=== PATIENT | female | born 1995 | race Two or more races ===

== ENCOUNTER 2020-09-30 23:04 | Emergency (ER) | payer OTHER ==
[2020-10-01 01:21] LABS: APPEARANCE,URINE SLIGHTLY-CLOUDY; BILIRUBIN,URINE NEGATIVE (NEGATIVE); COLOR,URINE YELLOW; GLUCOSE, URINE NEGATIVE (NEGATIVE); KETONES,URINE 80 mg/dL (NEGATIVE); LEUKOCYTE ESTERASE,URINE NEGATIVE (NEGATIVE); NITRITE,URINE NEGATIVE (NEGATIVE); PROTEIN,URINE NEGATIVE (NEGATIVE); URINE SPECIFIC GRAVITY 1.018; UROBILINOGEN,URINE NEGATIVE mg/dL (<2.0)
[2020-10-01] MEDS ORDERED: NORMAL SALINE 1000 ML 1,000 ML IV ONE (02:50)
[2020-10-01] MEDS ORDERED: ONDANSETRON HCL INJ/PF 4 MG/2 ML SDV IV ONE (03:02)
[2020-10-01] MEDS ORDERED: FAMOTIDINE 20 MG TABLET PO ONE (03:02)
[2020-10-01] MEDS ORDERED: SUCRALFATE 1 GM TABLET PO ONE (03:03)
--- NOTE | 2020-10-01 03:08 | ER Document Report ---
ED General - General Chief Complaint: Vomiting Stated Complaint: ABDOMINAL AND ARM PAIN Time Seen by Provider: 10/01/20 02:56 Notes: Patient is a 25-year-old female who comes emergency department for chief complaint of vomiting, generalized weakness, muscle aches, and tingling in her arms. She states she drank 6 shots of jose francisco last night and today she vomited multiple times especially when she tried to eat. Patient states she drinks rarely. She states that she just got over a mild cold where she was taking a lot of ibuprofen as well. She also states that she is currently on the keto diet. She denies fever, flank pain, chest pain, difficulty breathing, hematemesis, abnormal bowel movements. She denies any abdominal surgeries or any daily prescribed medications. Denies . - Related Data Allergies/Adverse Reactions: No Known Allergies Allergy (Verified 10/01/20 00:19) Home Medications: vitamin D Past Medical History - General Information source: Patient - Social History Smoking Status: Never Smoker Chew tobacco use (# tins/day): No Frequency of alcohol use: Social Drug Abuse: None Lives with: Family Family History: Reviewed & Not Pertinent - Medical History Medical History: Negative Surgical Hx: Negative - Immunizations Immunizations up to date: Yes Hx Diphtheria, Pertussis, Tetanus Vaccination: Yes Review of Systems - Review of Systems Constitutional: No symptoms reported EENT: No symptoms reported Cardiovascular: No symptoms reported Respiratory: No symptoms reported Gastrointestinal: See HPI Genitourinary: No symptoms reported Female Genitourinary: No symptoms reported Musculoskeletal: No symptoms reported Skin: No symptoms reported Hematologic/Lymphatic: No symptoms reported Neurological/Psychological: See HPI Physical Exam - Vital signs Vitals: Temp Pulse Resp BP Pulse Ox 97.7 F 120 H 18 131/100 H 99 09/30/20 23:11 09/30/20 23:11 09/30/20 23:11 09/30/20 23:11 09/30/20 23:11 - Notes Notes: GENERAL: Alert, interacts well. No acute distress. HEAD: Normocephalic, atraumatic. EYES: Pupils equal, round, and reactive to light. Extraocular movements intact. ENT: Oral mucosa very dry, tongue midline. Oropharynx unremarkable. Airway patent. NECK: Full range of motion. Supple. Trachea midline. No lymphadenopathy. LUNGS: Clear to auscultation bilaterally, no wheezes, rales, or rhonchi. No respiratory distress. Non-tender chest wall. HEART: Regular rate and rhythm. No murmur ABDOMEN: Mild generalized mid to upper abdominal tenderness without guarding. No rigidity, bowel sounds unremarkable EXTREMITIES: Moves all 4 extremities spontaneously. No edema, normal radial and dorsalis pedis pulses bilaterally. No cyanosis. BACK: no cervical, thoracic, lumbar midline tenderness. No saddle anesthesia, normal distal neurovascular exam. Moves all extremities in full range of motion. NEUROLOGICAL: Alert and oriented x3. Normal speech. Cranial nerves II through XII grossly intact. Strength 5/5 in all extremities. PSYCH: Normal affect, normal mood. SKIN: Warm, dry, normal turgor. No rashes or lesions noted. Course - Re-evaluation Re-evalutation: Patient initially tachycardic, has very dry mucous membranes, has mild generalized mid to upper abdominal tenderness without guarding. CBC unremarkable, chemistry shows mildly elevated LFTs which is not surprising given her alcohol binging last night, urine shows ketones and elevated specific gra vity. Patient was given lactated Ringer's. After this tachycardia resolved. Patient tolerated p.o. without any difficulty after being medicated for nausea. On reevaluation patient states she feels much better. I discussed keto diet, gastritis, heavy alcohol drinking, recommendations, follow-up, return cautions in detail. Patient states understanding and agreement. Stable and well- appearing at time of discharge. - Vital Signs Vital signs: Temp Pulse Resp BP Pulse Ox 98.2 F 94 15 117/73 100 10/01/20 04:52 10/01/20 04:52 10/01/20 04:52 10/01/20 04:52 10/01/20 04:52 - Laboratory Results Result Diagrams: 10/01/20 02:45 10/01/20 02:45 Laboratory Results Interpreted: 10/01/20 10/01/20 00:54 02:45 Creatinine 0.50 L AST 46 H ALT 53 H Urine Ketones 80 H Critical Laboratory Results Reviewed: No Critical Results - Radiology Results Critical Radiology Results Reviewed: No Critical Results Discharge - Discharge Clinical Impression: Dehydration Vomiting Qualifiers: Vomiting type: unspecified Vomiting Intractability: non-intractable Nausea presence: with nausea Qualified Code(s): R11.2 - Nausea with vomiting, unspecified Condition: Stable Disposition: HOME, SELF-CARE Additional Instructions: Your work-up and evaluation are consistent with gastritis (inflammation of the upper gastrointestinal tract), and also shows a lot of ketones. This appears to be the cause of your symptoms. You have been treated for this, I recommend bland diet (crackers, rice, toast, clear fluids, etc.), avoid spicy food, avoid smoking and alcohol, avoid caffeine and NSAIDs such as ibuprofen. Take the famotidine as prescribed. Take Zofran if needed for nausea. Symptoms should simply resolve with time. Follow-up with primary care. Return if you worsen including uncontrolled vomiting, severe worsening pain, fever, or any other concerning or worsening symptoms. Prescriptions: Famotidine [Pepcid 20 mg Tablet] 20 mg PO BID #14 tablet Ondansetron [Zofran Odt 4 mg Tablet] 1 - 2 tab PO Q4H PRN #15 tab.rapdis PRN Reason: For Nausea/Vomiting
[2020-10-01] MEDS: RINGERS SOLUTION,LACTATED 1,000 ML IV PRN ×2 (03:17→04:24)
[2020-10-01 03:22] LABS: ABSOLUTE EOSINOPHILS # (AUTO) 0.1 10^3/uL (0.0-0.6); ABSOLUTE MONOCYTES (AUTO) 0.6 10^3/uL (0.1-1.4); ABSOLUTE NEUT (AUTO) 6.1 10^3/uL (1.7-8.2); BASOPHILS % (AUTO) 0.3 % (0-2); EOSINOPHILS % (AUTO) 0.9 % (0-6); HEMATOCRIT 39.2 % (36.0-47.0); HEMOGLOBIN 13.2 g/dL (12.0-15.5); MEAN CORPUSCULAR HEMOGLOBIN 30.6 pg (27.0-33.4); MEAN CORPUSCULAR HGB CONC 33.8 g/dL (32.0-36.0); MEAN CORPUSCULAR VOLUME 90 fl (80-97); MONOCYTES % (AUTO) 5.7 % (3-13); PLATELET COUNT 286 10^3/uL (150-450); RED BLOOD COUNT 4.33 10^6/uL (3.72-5.28); RED CELL DISTRIBUTION WIDTH 13.2 % (11.5-14.0); SEGMENTED NEUTROPHILS % (AUTO) 62.1 % (42-78); TOTAL CELLS COUNTED % (AUTO) 100 %; WHITE BLOOD COUNT 9.8 10^3/uL (4.0-10.5)
[2020-10-01 03:57] LABS: ALKALINE PHOSPHATASE 96 U/L (38-126); ANION GAP 12 (5-19); ASPARTATE AMINO TRANSFERASE 46 U/L (14-36); BILIRUBIN,DIRECT 0.1 mg/dL (0.0-0.4); BILIRUBIN,TOTAL 0.6 mg/dL (0.2-1.3); BLOOD UREA NITROGEN 8 mg/dL (7-20); CALCIUM 9.8 mg/dL (8.4-10.2); CARBON DIOXIDE 26 mmol/L (22-30); CHLORIDE 100 mmol/L (98-107); GLUCOSE 92 mg/dL (75-110); POTASSIUM 4.4 mmol/L (3.6-5.0); TOTAL PROTEIN 8.1 g/dL (6.3-8.2)
[2020-10-01 04:53] VITALS: BP 117/73
== END 2020-10-01 04:52 | disposition home or self-care (01) ==
LOC: ER 23:04
DX: E86.0 Dehydration (principal); R11.2 Nausea with vomiting, unspecified; R53.1 Weakness; M79.10 Myalgia, unspecified site; R20.0 Anesthesia of skin; R10.84 Generalized abdominal pain; R00.0 Tachycardia, unspecified; Z79.899 Other long term (current) drug therapy
CPT/HCPCS: 99284; 96361; 96374; 36415; 83690; 85025; 81025; 80053; 81001; J2405; J7030; J7120